=== PATIENT | female | born 1935 ===

== ENCOUNTER 2019-09-30 12:43 | Outpatient (RCR) | payer MEDICARE, SELFPAY ==
[2019-09-30 14:07] LABS: Thyroid Stimulating Hormone 7.65 uIU/mL (0.27-4.20)
== END 2019-10-07 23:59 | disposition home or self-care (01) ==
LOC: LAB 12:43
PROVIDERS: Family Provider Internal Medicine; PCP Internal Medicine; Visit Provider Family Medicine
DX: Z01.89 Encounter for other specified special examinations (principal)
CPT/HCPCS: 84443